=== PATIENT | female | born 1950 | race Caucasian/White ===

== ENCOUNTER → 2024-09-08 14:44 | Outpatient (REF) | payer MEDICARE, SELFPAY | LOC: WDC 14:44 | PROVIDERS: ATTENDING PHYSICIAN Registered Nurse; PRIMARYCARE PHYSICIAN Family Medicine | DX: Z78.0 Asymptomatic menopausal state (principal); Z12.31 Encounter for screening mammogram for malignant neoplasm of breast | CPT/HCPCS: 77063; 77067; 77080 ==

== ENCOUNTER → 2024-10-02 10:03 | Outpatient (REF) | payer MEDICARE, SELFPAY | LOC: RAD 10:03 | PROVIDERS: ATTENDING PHYSICIAN Registered Nurse; FAMILY PHYSICIAN Family Medicine | DX: R23.0 Cyanosis (principal); M25.571 Pain in right ankle and joints of right foot | CPT/HCPCS: 73610; 73630; 93925; 93970 ==